=== PATIENT | male | born 1985 | race Caucasian/White ===

== ENCOUNTER 2017-01-15 00:24 | Emergency (ER) | payer OTHER | END 2017-01-15 00:48 | disposition home or self-care (01) | LOC: ER 00:24 | DX: B02.9 Zoster without complications (principal); F17.210 Nicotine dependence, cigarettes, uncomplicated ==

== ENCOUNTER 2017-03-12 21:26 | Emergency (ER) | payer SELFPAY | END 2017-03-12 23:08 | disposition home or self-care (01) | LOC: ER 21:26 | DX: J98.01 Acute bronchospasm (principal); J02.9 Acute pharyngitis, unspecified; F17.210 Nicotine dependence, cigarettes, uncomplicated | CPT/HCPCS: 87502; 87651 ==